=== PATIENT | male | born 1960 | race African-American/Black ===

== ENCOUNTER 2017-12-15 12:02 | Emergency (ER) | payer MEDICARE, MEDICAID ==
[2017-12-15] MEDS ORDERED: Morphine 10 MG/ML VIAL ONE (12:16)
[2017-12-15] MEDS ORDERED: Diazepam 5 MG TAB ONE (12:16)
[2017-12-15] MEDS ORDERED: Ketorolac Tromethamine 60 MG/2 ML VIAL ONE (13:16)
== END 2017-12-15 13:52 | disposition home or self-care (01) ==
LOC: ERS 12:02
DX: M54.18 Radiculopathy, sacral and sacrococcygeal region (principal); E11.9 Type 2 diabetes mellitus without complications; K21.9 Gastro-esophageal reflux disease without esophagitis; E78.2 Mixed hyperlipidemia; F41.9 Anxiety disorder, unspecified; F32.9 Major depressive disorder, single episode, unspecified; Z79.84 Long term (current) use of oral hypoglycemic drugs; Z79.82 Long term (current) use of aspirin; Z79.899 Other long term (current) drug therapy
CPT/HCPCS: 96372; J1885; J2270

== ENCOUNTER 2018-11-07 09:51 | Outpatient (CLI) | payer MEDICARE, MEDICAID ==
--- NOTE | 2018-11-07 11:42 | CT ---
CT BRAIN WITHOUT CONTRAST: HISTORY: Post concussion syndrome. Headache. FINDINGS: Comparison is made to the CT scan of 08/12/2002. Correlation is made with the MRI of 08/13/2016. No evidence of acute infarct, hemorrhage, midline shift, or abnormal extraaxial fluid collections is seen. The ventricular size is normal and the basilar cisterns patent. The bony calvarium is intact. The visualized paranasal sinuses and mastoid air cells are well aerated. IMPRESSION: No CT evidence of acute intracranial process. POS: OFF
== END 2018-11-07 09:52 | disposition home or self-care (01) ==
LOC: BICCT 09:51
PROVIDERS: ATTEND Nurse Practitioner Family
DX: F07.81 Postconcussional syndrome (principal); R51 Headache
CPT/HCPCS: 70450

== ENCOUNTER 2019-07-11 17:22 | Emergency (ER) | payer MEDICARE, MEDICAID ==
[2019-07-11] MEDS ORDERED: Ibuprofen 800 MG TAB ONE (18:26)
== END 2019-07-11 18:30 | disposition home or self-care (01) ==
LOC: ERS 17:22
DX: J11.1 Influenza due to unidentified influenza virus with other respiratory manifestations (principal); E11.9 Type 2 diabetes mellitus without complications; K21.9 Gastro-esophageal reflux disease without esophagitis; E78.2 Mixed hyperlipidemia; I10 Essential (primary) hypertension; Z79.84 Long term (current) use of oral hypoglycemic drugs; Z79.82 Long term (current) use of aspirin; Z79.899 Other long term (current) drug therapy
CPT/HCPCS: 99283

== ENCOUNTER 2021-12-30 16:21 | Inpatient (IN) | payer MEDICARE, MEDICAID ==
[2021-12-30] MEDS ORDERED: Azithromycin 500 MG VIAL ONE (17:57)
[2021-12-30 18:01] LABS: #Basophils 0.1 thou/uL (0.0-0.2); #Eosinphils 0.1 thou/uL (0.0-0.7); #Lymphocytes 2.6 thou/uL (1.20-3.40); #Monocytes 0.7 thou/uL (0.11-0.59); #Neutrophils 2.3 thou/uL (1.40-6.50); %Basophils 1.4 % (0.0-1.0); %Eosinophils 0.9 % (0.0-10.0); %Monocytes 12.6 % (0.0-10.0); Hemoglobin 13.5 g/dL (14.0-18.0); Mean Corpuscular HGB CONC 32.6 g/dL (32.0-36.0); Mean Corpuscular Hemoglobin 24.2 pg (27.0-31.0); Mean Corpuscular Volume 74.1 fL (78.0-98.0); Mean Platelet Volume 9.4 fL (7.4-10.4); Platelet Count 162 thou/uL (130-400); RBC Distribution Width 12.5 % (11.5-14.5); Red Blood Cell (RBC) Count 5.59 mill/uL (4.70-6.10); White Blood Cell (WBC) Count 5.7 thou/uL (4.8-10.8)
[2021-12-30] MEDS ORDERED: Dexamethasone 10 MG/ML VIAL ONE (18:01)
[2021-12-30 18:18] LABS: Hypochromia SLIGHT = 6-15 cells (100X) (0-5/hpf); MDiff Complete? YES; Microcytosis SLIGHT = 6-15 cells (100X) (0-5/hpf); Platelet Morphology Comment Appears Adequate
[2021-12-30 18:21] LABS: ALT (SGPT) 26 U/L (8-55); AST (SGOT) 24 U/L (5-34); Albumin 4.2 g/dL (3.4-4.8); Alkaline Phosphatase 88 U/L (40-110); Anion Gap 17 mmol/L (10-20); BUN (Urea Nitrogen) 15 mg/dL (8.4-25.7); Bilirubin, Total 0.4 mg/dL (0.2-1.2); Calc. Creatinine Clearance 0 mL/min (70-130); Calcium 9.6 mg/dL (7.8-10.44); Carbon Dioxide 26 mmol/L (23-31); Chloride 102 mmol/L (98-107); Globulin 3.8 g/dL (2.4-3.5); Glucose 190 mg/dL (80-115); Potassium 3.8 mmol/L (3.5-5.1); Sodium 141 mmol/L (136-145)
[2021-12-30 20:50] LABS: Lactic Acid 1.9 mmol/L (0.5-2.2)
[2021-12-30 20:57] LABS: SARS-CoV-2 NAA Rapid Test DETECTED (NotDetected)
[2021-12-30 21:06] LABS: Bilirubin Negative (Negative); Blood, Urine Negative (Negative); Clarity Clear (Clear); Glucose, Urine (Dipstick) Greater than 1000 mg/dL (Negative); Ketone, Urine Negative (Negative); Leukocyte Negative Leu/uL (Negative); Nitrite Negative (Negative); Protein, Urine (Dipstick) 20 mg/dL (Neg-Trace); Specific Gravity, Urine 1.015 (1.002-1.036); Urobilinogen Normal mg/dL (Less than 2)
[2021-12-30] MEDS: Sodium Chloride 0.9% 1,000 ML IV SCH (22:30)
[2021-12-30] MEDS ORDERED: Ondansetron ODT 4 MG TAB PO PRN (22:51)
[2021-12-30] MEDS ORDERED: Acetaminophen 325 MG TAB PO PRN ×2 (22:51→23:00)
[2021-12-30] MEDS ORDERED: Bisacodyl 5 MG TAB PO PRN (22:51)
[2021-12-30] MEDS ORDERED: Dextrose 5% in Water 1,000 ML IV PRN (22:57)
[2021-12-30] MEDS ORDERED: Dextrose 50% Abboject 50 ML SYRINGE SLOW IVP PRN (22:57)
[2021-12-30] MEDS ORDERED: Acetaminophen 650 MG Suppository PR PRN (23:00)
[2021-12-30] MEDS ORDERED: Benzonatate 100 MG CAP PO PRN (23:00)
[2021-12-30] MEDS ORDERED: Albuterol 200 PUFF (6.7GM INHALER) INH PRN (23:00)
[2021-12-30 23:02] VITALS: BMI 33.0
[2021-12-30] MEDS ORDERED: REMDESIVIR 200 MG in Sodium Chloride 0.9% 250 ML IV SCH (23:59)
[2021-12-31] MEDS: HumaLOG 300 UNITS/3 ML VIAL SC PRN ×5 (01:00→22:00)
[2021-12-31] MEDS: Sodium Chloride 0.9% 1,000 ML IV SCH (05:12)
[2021-12-31 06:28] LABS: #Lymphocytes 0.9 thou/uL (1.20-3.40); #Monocytes 0.3 thou/uL (0.11-0.59); #Neutrophils 5.2 thou/uL (1.40-6.50); %Basophils 0.1 % (0.0-1.0); %Lymphocytes 14.4 % (21.0-51.0); %Neutrophils 81.4 % (42.0-75.0); Hemoglobin 12.5 g/dL (14.0-18.0); Mean Corpuscular Hemoglobin 23.7 pg (27.0-31.0); Mean Corpuscular Volume 74.2 fL (78.0-98.0); Mean Platelet Volume 8.9 fL (7.4-10.4); Platelet Count 165 thou/uL (130-400); RBC Distribution Width 12.6 % (11.5-14.5); Red Blood Cell (RBC) Count 5.27 mill/uL (4.70-6.10); White Blood Cell (WBC) Count 6.4 thou/uL (4.8-10.8)
[2021-12-31 06:45] LABS: Anion Gap 16 mmol/L (10-20); BUN (Urea Nitrogen) 14 mg/dL (8.4-25.7); Calc. Creatinine Clearance 86 mL/min (70-130); Carbon Dioxide 24 mmol/L (23-31); Chloride 104 mmol/L (98-107); Glucose 297 mg/dL (80-115); Potassium 4.1 mmol/L (3.5-5.1); Sodium 140 mmol/L (136-145)
[2021-12-31] MEDS: Enoxaparin Sodium 40 MG/0.4 ML SYRINGE SC SCH (07:49)
[2021-12-31] MEDS: Dexamethasone 10 MG/ML VIAL SLOW IVP SCH (07:49)
[2021-12-31] MEDS: Aspirin Chewable 81 MG TAB PO SCH (07:50)
[2021-12-31] MEDS: REMDESIVIR 100 MG in Sodium Chloride 0.9% 250 ML IV SCH (21:59)
[2021-12-31] MEDS: Atorvastatin Calcium 40 MG TAB PO SCH (21:59)
[2022-01-01 06:07] LABS: #Lymphocytes 1.7 thou/uL (1.20-3.40); #Monocytes 0.9 thou/uL (0.11-0.59); #Neutrophils 6.2 thou/uL (1.40-6.50); %Eosinophils 0.1 % (0.0-10.0); %Lymphocytes 19.1 % (21.0-51.0); %Monocytes 10.6 % (0.0-10.0); %Neutrophils 70.1 % (42.0-75.0); Hemoglobin 12.3 g/dL (14.0-18.0); Mean Corpuscular HGB CONC 31.3 g/dL (32.0-36.0); Mean Corpuscular Hemoglobin 23.3 pg (27.0-31.0); Mean Corpuscular Volume 74.3 fL (78.0-98.0); Platelet Count 189 thou/uL (130-400); RBC Distribution Width 12.6 % (11.5-14.5); Red Blood Cell (RBC) Count 5.28 mill/uL (4.70-6.10); White Blood Cell (WBC) Count 8.9 thou/uL (4.8-10.8)
[2022-01-01] MEDS: HumaLOG 300 UNITS/3 ML VIAL SC PRN ×4 (06:18→22:11)
[2022-01-01 06:31] LABS: ALT (SGPT) 22 U/L (8-55); AST (SGOT) 17 U/L (5-34); Albumin 3.8 g/dL (3.4-4.8); Alkaline Phosphatase 73 U/L (40-110); Anion Gap 13 mmol/L (10-20); BUN (Urea Nitrogen) 16 mg/dL (8.4-25.7); Bilirubin, Total 0.4 mg/dL (0.2-1.2); CRP (Inflammatory) 1.79 mg/dL (= or < 0.5); Calc. Creatinine Clearance 88 mL/min (70-130); Carbon Dioxide 27 mmol/L (23-31); Chloride 106 mmol/L (98-107); Globulin 3.2 g/dL (2.4-3.5); Glucose 189 mg/dL (80-115); Potassium 4.1 mmol/L (3.5-5.1); Sodium 142 mmol/L (136-145)
[2022-01-01] MEDS: Dexamethasone 10 MG/ML VIAL SLOW IVP SCH (08:35)
[2022-01-01] MEDS: Aspirin Chewable 81 MG TAB PO SCH (08:36)
[2022-01-01] MEDS: Enoxaparin Sodium 40 MG/0.4 ML SYRINGE SC SCH (08:36)
[2022-01-01] MEDS: metFORMIN 500 MG TAB PO SCH (17:13)
[2022-01-01] MEDS: Atorvastatin Calcium 40 MG TAB PO SCH (22:10)
[2022-01-01] MEDS: REMDESIVIR 100 MG in Sodium Chloride 0.9% 250 ML IV SCH (22:11)
[2022-01-01] MEDS: Escitalopram Oxalate 10 mg Tablet PO SCH (22:11)
[2022-01-02] MEDS: HumaLOG 300 UNITS/3 ML VIAL SC PRN ×3 (05:56→17:52)
[2022-01-02] MEDS: Dexamethasone 10 MG/ML VIAL SLOW IVP SCH (08:40)
[2022-01-02] MEDS: Enoxaparin Sodium 40 MG/0.4 ML SYRINGE SC SCH (08:41)
[2022-01-02] MEDS: Aspirin Chewable 81 MG TAB PO SCH (08:41)
[2022-01-02] MEDS: metFORMIN 500 MG TAB PO SCH ×2 (08:41→17:51)
[2022-01-02] MEDS: REMDESIVIR 100 MG in Sodium Chloride 0.9% 250 ML IV SCH (21:54)
[2022-01-02] MEDS: Atorvastatin Calcium 40 MG TAB PO SCH (21:55)
[2022-01-02] MEDS: Escitalopram Oxalate 10 mg Tablet PO SCH (21:55)
[2022-01-03] MEDS: HumaLOG 300 UNITS/3 ML VIAL SC PRN ×3 (06:04→16:57)
[2022-01-03] MEDS: Insulin Glargine 30 UNITS/0.3 ML VIAL SC SCH ×2 (08:41→22:45)
[2022-01-03] MEDS: Aspirin Chewable 81 MG TAB PO SCH (08:41)
[2022-01-03] MEDS: Enoxaparin Sodium 40 MG/0.4 ML SYRINGE SC SCH (08:41)
[2022-01-03] MEDS: metFORMIN 500 MG TAB PO SCH ×2 (08:41→16:53)
[2022-01-03] MEDS: Dexamethasone 10 MG/ML VIAL SLOW IVP SCH (08:42)
[2022-01-03] MEDS: Atorvastatin Calcium 40 MG TAB PO SCH (22:45)
[2022-01-03] MEDS: Escitalopram Oxalate 10 mg Tablet PO SCH (22:45)
[2022-01-03] MEDS: REMDESIVIR 100 MG in Sodium Chloride 0.9% 250 ML IV SCH (22:46)
[2022-01-03] MEDS ORDERED: Loperamide HCl 2 MG CAP PO PRN (23:30)
[2022-01-04] MEDS ORDERED: Loperamide HCl 2 MG CAP PO PRN (01:09)
[2022-01-04] MEDS ORDERED: Simethicone Chewable 80 MG TAB PO PRN (02:45)
[2022-01-04] MEDS: HumaLOG 300 UNITS/3 ML VIAL SC PRN (05:31)
[2022-01-04 06:56] LABS: ALT (SGPT) 28 U/L (8-55); AST (SGOT) 29 U/L (5-34); Albumin 3.1 g/dL (3.4-4.8); Alkaline Phosphatase 64 U/L (40-110); Anion Gap 14 mmol/L (10-20); BUN (Urea Nitrogen) 17 mg/dL (8.4-25.7); Bilirubin, Total 0.4 mg/dL (0.2-1.2); Calc. Creatinine Clearance 93 mL/min (70-130); Calcium 8.8 mg/dL (7.8-10.44); Carbon Dioxide 18 mmol/L (23-31); Chloride 111 mmol/L (98-107); Estimated GFR 73; Globulin 3.2 g/dL (2.4-3.5); Glucose 209 mg/dL (80-115); Potassium 4.7 mmol/L (3.5-5.1); Protein, Total 6.3 g/dL (5.8-8.1); Sodium 138 mmol/L (136-145)
[2022-01-04] MEDS: metFORMIN 500 MG TAB PO SCH (09:01)
[2022-01-04] MEDS: Enoxaparin Sodium 40 MG/0.4 ML SYRINGE SC SCH (09:01)
[2022-01-04] MEDS: Aspirin Chewable 81 MG TAB PO SCH (09:01)
[2022-01-04] MEDS: Insulin Glargine 30 UNITS/0.3 ML VIAL SC SCH (09:01)
[2022-01-04] MEDS ORDERED: Famotidine 20 MG TAB PO SCH (10:45)
[2022-01-04 14:55] VITALS: BP 121/75; TEMP 98.2
== END 2022-01-04 15:10 | disposition home or self-care (01) | DRG 177 ==
LOC: ERS 16:21 → T4-A 20:05 → OBSVTOIN 23:00
PROVIDERS: ADMIT Internal Medicine; ATTEND Internal Medicine
PROC: XW033E5 Introduction of Remdesivir Anti-infective into Peripheral Vein, Percutaneous Approach, New Technology Group 5 (ICD-10-PCS; principal; 2021-12-30)
PROC: 8E0ZXY6 Isolation (ICD-10-PCS; 2021-12-30)
DX: U07.1 COVID-19 (principal); J12.82 Pneumonia due to coronavirus disease 2019; J96.01 Acute respiratory failure with hypoxia; R04.2 Hemoptysis; N17.9 Acute kidney failure, unspecified; K21.9 Gastro-esophageal reflux disease without esophagitis; E78.2 Mixed hyperlipidemia; M10.9 Gout, unspecified; F43.10 Post-traumatic stress disorder, unspecified; E66.9 Obesity, unspecified; N18.9 Chronic kidney disease, unspecified; I25.10 Atherosclerotic heart disease of native coronary artery without angina pectoris; I12.9 Hypertensive chronic kidney disease with stage 1 through stage 4 chronic kidney disease, or unspecified chronic kidney disease; Z90.89 Acquired absence of other organs; Z98.890 Other specified postprocedural states; Z79.899 Other long term (current) drug therapy; Z79.82 Long term (current) use of aspirin; Z79.84 Long term (current) use of oral hypoglycemic drugs; Z68.33 Body mass index [BMI] 33.0-33.9, adult; Z82.49 Family history of ischemic heart disease and other diseases of the circulatory system
CPT/HCPCS: 36415; 36416; 71045; 71250; 80048; 80053; 81003; 83605; 85025; 86140; 87040; 87804; 93005; 93306; 94640; 96365; 96375; G0378; J0248; J0456; J1100; J1650; J1815; J7050; J7620; U0002

== ENCOUNTER 2023-03-18 10:20 | Emergency (ER) | payer MEDICAID, OTHER, SELFPAY ==
[2023-03-18 12:00] LABS: #Eosinphils 0.1 thou/uL (0.0-0.7); #Monocytes 0.9 thou/uL (0.11-0.59); %Basophils 0.3 % (0.0-1.0); %Eosinophils 1.1 % (0.0-10.0); %Neutrophils 65.1 % (42.0-75.0); Hematocrit 43.8 % (42.0-52.0); Hemoglobin 14.3 g/dL (14.0-18.0); Mean Corpuscular HGB CONC 32.6 g/dL (32.0-36.0); Mean Corpuscular Hemoglobin 23.2 pg (27.0-31.0); Mean Corpuscular Volume 71.1 fl (78.0-98.0); Platelet Count 236 10x3/uL (130-400); RBC Distribution Width 13.9 % (11.5-14.5); Red Blood Cell (RBC) Count 6.16 mill/uL (4.70-6.10); White Blood Cell (WBC) Count 9.2 10x3/uL (4.8-10.8)
[2023-03-18 12:24] LABS: ALT (SGPT) 17 U/L (8-55); AST (SGOT) 16 U/L (5-34); Albumin 4.8 g/dL (3.4-4.8); Alkaline Phosphatase 91 U/L (40-110); Anion Gap 13 mmol/L (10-20); BUN (Urea Nitrogen) 25 mg/dL (8.4-25.7); Bilirubin, Total 0.3 mg/dL (0.2-1.2); Calc. Creatinine Clearance 0 mL/min (70-130); Calcium 10.4 mg/dL (7.8-10.44); Carbon Dioxide 28 mmol/L (23-31); Chloride 104 mmol/L (98-107); Estimated GFR 54; Globulin 3.9 g/dL (2.4-3.5); Glucose 161 mg/dL (80-115); Lipase 19 U/L (8-78); Potassium 4.1 mmol/L (3.5-5.1); Protein, Total 8.7 g/dL (5.8-8.1); Sodium 141 mmol/L (136-145)
[2023-03-18 12:30] LABS: Troponin I Less than 0.010 ng/mL (< 0.028)
[2023-03-18 12:47] LABS: CellaVision Operator ID LAB.KB; Microcytosis SLIGHT = 6-15 cells HPF (0-5); Platelet Adequacy Comment Platelets Normal
== END 2023-03-18 13:44 | disposition home or self-care (01) ==
LOC: ERS 10:20
DX: S09.90XA Unspecified injury of head, initial encounter (principal); E11.9 Type 2 diabetes mellitus without complications; K21.9 Gastro-esophageal reflux disease without esophagitis; E78.2 Mixed hyperlipidemia; Z79.899 Other long term (current) drug therapy; Z79.82 Long term (current) use of aspirin; Z79.84 Long term (current) use of oral hypoglycemic drugs; W22.8XXA Striking against or struck by other objects, initial encounter
CPT/HCPCS: 70450; 71045; 80053; 83690; 83880; 84484; 85025; 93005

== ENCOUNTER 2023-09-15 07:03 | Emergency (ER) | payer OTHER ==
[2023-09-15] MEDS ORDERED: Ketorolac Tromethamine 30 MG (1 mL) VIAL ONE (07:47)
[2023-09-15] MEDS ORDERED: Lidocaine 1% w/Epinephrine 1:100K 20 ML VIAL ONE (08:11)
[2023-09-15 08:41] LABS: #Eosinphils 0.1 thou/uL (0.0-0.7); #Monocytes 1.2 thou/uL (0.11-0.59); #Neutrophils 7.9 thou/uL (1.40-6.50); %Basophils 0.3 % (0.0-1.0); %Eosinophils 0.8 % (0.0-10.0); %Lymphocytes 16.1 % (21.0-51.0); %Monocytes 10.8 % (0.0-10.0); %Neutrophils 71.7 % (42.0-75.0); Hematocrit 39.7 % (42.0-52.0); Hemoglobin 12.8 g/dL (14.0-18.0); Mean Corpuscular HGB CONC 32.2 g/dL (32.0-36.0); Mean Corpuscular Hemoglobin 22.8 pg (27.0-31.0); Mean Corpuscular Volume 70.6 fl (78.0-98.0); Mean Platelet Volume 9.4 fL (7.4-10.4); Platelet Count 358 10x3/uL (130-400); RBC Distribution Width 13.7 % (11.5-14.5); Red Blood Cell (RBC) Count 5.62 mill/uL (4.70-6.10)
[2023-09-15 09:17] LABS: Anisocytosis SLIGHT = 6-15 cells HPF (0-5); CellaVision Operator ID LAB.CMB; Platelet Adequacy Comment Platelets Normal; Polychromasia SLIGHT = 2-3 cells HPF (0-2)
[2023-09-15 09:18] LABS: Microcytosis MODERATE=15-30 cells (100X) (0-5/hpf)
[2023-09-15 11:56] LABS: BF Color Yellow; Body Fluid Source Synovial Fluid; Clarity Hazy (Clear); Tube # 1
[2023-09-15 12:10] LABS: RBC Count-Automated (BF) 0 /cu.mm; WBC/Nucleated-Auto (BF) 1743 /cu.mm
[2023-09-15 12:20] LABS: BF Segmented Neutrophils 75 %; Cell Count Non Hematic 12 %; Eosinophils 5 %; Lymphocytes 8 %
== END 2023-09-15 12:51 | disposition home or self-care (01) ==
LOC: ERS 07:03
DX: M70.51 Other bursitis of knee, right knee (principal); M17.11 Unilateral primary osteoarthritis, right knee; E11.9 Type 2 diabetes mellitus without complications; I10 Essential (primary) hypertension
CPT/HCPCS: 20610; 36415; 82945; 85025; 85060; 86140; 87040; 87070; 87205; 89051; 89060; 96372; J1885